=== PATIENT | male | born 1960 | race Caucasian/White ===

== ENCOUNTER → 2017-06-25 | Outpatient (CLI) | payer OTHER ==
[2017-06-25 13:26] LABS: BLOOD UREA NITROGEN 18 mg/dl (7-18); BUN/CREATININE RATIO 19.9 (10-20); CALCIUM 8.5 mg/dl (8.5-10.1); CARBON DIOXIDE 27 mmol/L (21-32); CHLORIDE 106 mmol/L (98-107); GLUCOSE 117 mg/dl (70-99); POTASSIUM 4.1 mmol/L (3.5-5.1); SODIUM 136 mmol/L (136-145)
== END | disposition home or self-care (01) ==
LOC: C.LABMFLN 09:07
PROVIDERS: ATTEND Physician Assistant
DX: E16.2 Hypoglycemia, unspecified (principal)

== ENCOUNTER → 2017-06-26 | Outpatient (CLI) | payer OTHER | END | disposition home or self-care (01) | LOC: C.LABMFLN 12:21 | PROVIDERS: ATTEND Urology | DX: N52.9 Male erectile dysfunction, unspecified (principal); N40.1 Benign prostatic hyperplasia with lower urinary tract symptoms ==